=== PATIENT | male | born 1980 | race Caucasian/White ===

== ENCOUNTER 2017-02-19 11:56 | Day surgery (SDC) | payer BC ==
--- NOTE | ~2017-02-19 | OP ---
Record Of Operation [facility] [address] [place]. [address] NAME: PORTILLO SCOTT : 80 STATUS : [facility]#: [id number] AGE: 37 ADM/REG DATE : 02/19/17 MR#: [id number] REPORT SERV DATE: 02/19/17 DICTATED BY: AZEB JOHNSON DATE: 02/19/17 REPORT STATUS : Draft TRANSCRIBED BY: MODL DATE: 02/19/17 DATE OF PROCEDURE: 02/19/2017 PREOPERATIVE DIAGNOSES: Right knee anterior cruciate ligament tear, medial collateral ligament tear, medial and lateral meniscal tears. 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 PROCEDURE: Right knee arthroscopy with partial lateral meniscectomy, debridement of lateral tibia plateau chondral lesion grade 4, partial medial meniscectomy, arthroscopically assisted bone-patellar tendon, autograft ACL reconstruction, and exam of right knee under anesthesia. SURGEON: Azeb Johnson M.D. CARE NURSE RN: Brian Barrera. ANESTHESIA: General anesthetic. ESTIMATED BLOOD LOSS: 50 mL. FLUIDS: 1300 mL of crystalloid. TOURNIQUET TIME: Zero. DRAINS: None. COMPLICATIONS: None. INDICATION: A 37-year-old patient presented to the office after a vascular injury with a subluxation event of his knee. Examination revealed instability in full extension to valgus stress as well as a positive Shreya's exam, an effusion and limited range of motion. Plain radiographs were obtained, which were negative. MRI scan was obtained, which indicated medial and meniscal tears, ACL tear, medial collateral ligament tear, tibial insertion, and a suspicion of a lateral femoral condyle lesion. The patient was apprised of diagnosis and treatment recommendations for operative treatment for repair of the above mentioned injuries. The risks and complications were discussed with him in the office. He voiced understanding and agreed to proceed. DESCRIPTION OF PROCEDURE: He was identified in the preop holding area. His operative extremity was marked with yes. The patient was then taken to the operative suite and placed in supine position on the operating table. General anesthetic was successfully administered. The patient's right knee was then examined under anesthesia and noted to be Record Of Operation [facility] [address] [place]. [address] NAME: PORTILLO SCOTT : 80 STATUS : [facility] PAT#: [id number] AGE: 37 ADM/REG DATE : 02/19/17 MR#: [id number] REPORT SERV DATE: 02/19/17 DICTATED BY: AZEB JOHNSON DATE: 02/19/17 REPORT STATUS : Draft TRANSCRIBED BY: MORENO DATE: 02/19/17 stable in full extension. With 30 degrees of knee flexion, he had slight laxity with good endpoint on lateral valgus stress. Examination of the well knee indicated slightly less translation with an endpoint as well. He had a grade 1 Shreya's exam. Knee range of motion was full extension and flexion to 125 degrees. The patient's right lower extremity was then prepped and draped to expose the knee circumferentially. A time-out was called. He was identified, correct operative extremity identified, verification of antibiotic Ancef administration 2 g. Stab incision was made in the paralateral patellar tendon area and arthroscope was introduced and visualization of the knee joint was noted. It was noted to have an ACL tear, medial anterior horn meniscal tear, posterior radial tear at the meniscus with a free flap at the body, intact insertion with a chondral lesion in the posterior medial aspect of the lateral tibial plateau, grade 4 lesion. PCL was intact. Cartilaginous surface showed some grade 1 to 2 changes in the medial and lateral femoral condyle and the retropatellar surface showed some mild fissuring. The trochlea was intact. The arthroscope was then withdrawn from the knee joint and an oblique incision was made from the inferior patella to the proximal medial tibia through skin and subcutaneous tissues using electrocautery for hemostasis. Patellar paratenon was identified and sharply incised longitudinally. Medial and lateral patellar retractor was utilized as well as Deuce retractors and a double-bladed 10 knife was used to harvest the central third patellar tendon, ACL graft with oscillating saw, curved osteotome and mallet. The graft was measured to be 100 mm with 22 mm bone plugs. The graft was then prepared in the back table, the excess was trimmed and was used to place back into the patellar defect. There was still some defect made in the patella, which was filled with DBX bone graft. The patellar tendon was approximated using #1 Vicryl interrupted sutures, and the patellar paratenon closed using 2-0 running Vicryl suture. Attention was then turned to the knee joint where a medial port was established under needle localization from within the oblique incision as a working portal utilizing the lateral arthroscopic portal. The notch was then cleaned from soft tissue and notchplasty was performed using a noreen. ACL remnant was removed. The medial anterior horn meniscus was debrided back to a stable rim. The medial aspect of the medial meniscus was then checked intraarticularly and noted to be solidly healed to the medial tibia, but no obvious deep MCL laxity defect. The posterior aspect of the medial meniscus also showed a slight horizontal tear and the posterior aspect was debrided using a shaver. The PCL was intact. The lateral joint was then addressed with debridement of the lateral aspect of the lateral meniscus, posterior free edge to a stable rim. Medial anchor part of the lateral meniscus was also debrided, but was stable with left approximately a 7 to 8 mm defect in the posterior aspect of the lateral meniscus. The posterior and lateral aspects of the lateral tibial plateaus noted to have a grade 4 lesion. Cartilage was removed and a microfracture was performed using a Listia awl. The size of the defect was approximately 4 x 5 mm. The proximal medial tibia then had an L-shaped periosteal window placed and the Arthrex melissa tip guide was placed to drill a tibial tunnel. A guide pin was placed under satisfactory position by extending the knee normally within the notch. A 10 reamer was then used to ream the cortex and then a guide pin was switched for Arthrex core reamer 10 mm and the tibial tunnel was made. The introitus of the tunnel was debrided using a shaver. Freehand technique was then utilized with a 10 Boswell reamer and the femoral tunnel was drilled to a depth of 25 mm. A 1 mm back wall was noted. Excess bone was removed. A Beath pin was then placed through the femoral drill out through the anterior lateral femoral cortex. The drill was then removed under hand control in reverse sparing the PCL. The knee was then cleansed of an excess bone debris with a shaver. The ACL graft was then attached Record Of [address] [place]. [address] NAME: PORTILLO SCOTT : 80 STATUS : [facility] PAT#: [id number] AGE: 37 ADM/REG DATE : 02/19/17 MR#: [id number] REPORT SERV DATE: 02/19/17 DICTATED BY: AZEB JOHNSON DATE: 02/19/17 REPORT STATUS : Draft TRANSCRIBED BY: MORENO DATE: 02/19/17 to the Beath pin and it was brought up into the knee joint. The graft was seated 80% and then a T-handle with a Nitinol wire for placement of the interference screw was placed anterior to the patella plug into the femur and the plug was seated completely. The [employer] SANZ bioabsorbable screw was then placed 8 x 20 mm with a stab incision in the anterior joint. Clear cannula over the Nitinol wire and the screw was placed with good tightening. Guide pin was then removed leaving the screw in place. The knee was cycled through range of motion in flexion and extension. The insertion was noted to be stable. Attention was then turned to the distal aspect of the graft through the tibial tunnel, which was withdrawn approximately 15 mm into the tunnel. A Nitinol wire was placed over the anterior aspect of the bone plug with tensioning in 10 degrees of knee flexion. An interference 9 x 20 SANZ bioabsorbable screw was placed which was deemed not appropriate and that it was not well fixed, this was removed and a 10 x 25 mm SANZ bioabsorbable screw was placed anterior to the graft. This again showed marginal fixation. The bone staple was then brought to the field and the suture limbs were tied over bone staple, placed in the proximal tibia to confer extra stability to the distal insertion of the graft. The knee was then checked and noted to have a negative Shreya's exam with full flexion and extension. Intraoperative arthroscopy was used to obtain pictures of the final graft, which was kept for permanent record as were previous pictures obtained. The core reamer bone was then utilized to graft back into the tibial defect from graft harvest and the tibial tunnel site and these were all closed using 0 and 2-0 Vicryl suture. An oblique incision was closed using two layers of 2-0 Vicryl suture and then a 2-0 Stratafix running suture. The anterior lateral portals were closed using 2-0 PDS suture interrupted. The incision was covered with Mastisol Steri-Strips and both incisions were covered with a Mepilex dressing. An Cole wrap was placed. He was then placed into his knee brace in full extension. He was awakened, extubated, [facility] to [facility], and taken to the postanesthesia care unit in satisfactory condition having tolerated the procedure well. Sponge and needle counts were correct at the conclusion of the procedure. EC/MODL Azeb Johnson M.D. / [id number] CC: Ana Powell M.D.
== END 2017-02-19 21:19 | disposition home or self-care (01) ==
LOC: SDC 11:56
PROVIDERS: Orthopaedic Surgery
PROC: 0SBC4ZZ Excision of Right Knee Joint, Percutaneous Endoscopic Approach (ICD-10-PCS; principal; 2017-02-19 13:45)
PROC: 0MUN47Z Supplement Right Knee Bursa and Ligament with Autologous Tissue Substitute, Percutaneous Endoscopic Approach (ICD-10-PCS; 2017-02-19 13:45)
DX: S83.511A Sprain of anterior cruciate ligament of right knee, initial encounter (principal); S83.241A Other tear of medial meniscus, current injury, right knee, initial encounter; S83.281A Other tear of lateral meniscus, current injury, right knee, initial encounter; F17.210 Nicotine dependence, cigarettes, uncomplicated; Z98.890 Other specified postprocedural states
CPT/HCPCS: A9270-GY; C1713; J0690; J1170; J2175; J2250; J2405; J2550; J2710; J2795; J3010